=== PATIENT | female | born 1950 | race African-American/Black ===

== ENCOUNTER 2018-11-25 11:25 | Inpatient (IN) | payer MEDICARE, BC ==
[~2018-11-25] VITALS: Ht 152.4 cm; Wt 48.1 kg
[~2018-11-25 11:25] MED LIST: ACET-2178 PO; ATOR10TA PO; DOCU-138 PO; FAMO-134 PO; LIDO700A TP; MILK OF MAGNESIA PO; POLY17PO3 PO; WARF1TAB46 PO
[2018-11-25] MEDS ORDERED: SODIUM CHLORIDE 0.9% 1,000 ML IV ONE (12:20)
[2018-11-25 13:24] LABS: CHLORIDE 100 mEq/L (98-107)
[2018-11-25 13:30] LABS: BASOPHILS % 0.1 % (0.0-2.0); HEMATOCRIT. 44.6 % (36.0-48.0); HEMOGLOBIN. 14.5 g/dL (12.0-16.0); LYMPHOCYTES % 11.3 % (20.0-50.0); MEAN CORPUSCULAR HEMOGLOBIN 30.2 pg (28.0-32.0); MEAN CORPUSCULAR VOLUME 92.7 fL (81.0-99.0); MONOCYTES % 4.7 % (2.0-8.0); NEUTROPHILS % 83.9 % (40.0-76.0); PLATELET 190 x1000/uL (130-400); RED BLOOD CELL COUNT 4.81 mill/uL (4.2-5.4); RED CELL DISTRIBUTION WIDTH 15.1 % (11.6-14.6)
[2018-11-25] MEDS ORDERED: ASPIRIN 81MG TABLET PO ONE (14:15)
[2018-11-25] MEDS ORDERED: NITROGLYCERIN 0.4MG TABLET SL SL PRN (14:15)
[2018-11-25] MEDS ORDERED: ENOXAPARIN 100MG/ML SYR SUBCUT ONE (14:15)
[2018-11-25 14:20] LABS: CLARITY URINE CLEAR (CLEAR); COLOR URINE DARK YELLOW (YELLOW); KETONES URINE NEGATIVE (NEGATIVE); LEUKOCYTE ESTERASE URINE NEGATIVE (NEGATIVE); NITRITE URINE NEGATIVE (NEGATIVE); OCCULT BLOOD URINE 2+ (NEGATIVE); PH URINE 5.5 (4.5-8.0); PROTEIN URINE 2+ (NEGATIVE); SPECIFIC GRAVITY URINE 1.024 (1.005-1.030)
[2018-11-25] MEDS ORDERED: INSULIN REGULAR (HUMULIN R) 300UNITS/3ML SUBCUT ONE (15:15)
[2018-11-25] MEDS ORDERED: DEXTROSE 50% WATER 50ML SYRINGE IV PRN (23:30)
[2018-11-26] VITALS (13 sets, daily range): BP systolic 102–134; BP diastolic 71–100
[2018-11-26] MEDS ORDERED: SODIUM POLYSTYRENE SULFONATE 15 G/60 ML BOT PO NR (01:00)
[2018-11-26 06:47] LABS: BASOPHILS % 0.2 % (0.0-2.0); HEMOGLOBIN. 13.7 g/dL (12.0-16.0); LYMPHOCYTES % 14.2 % (20.0-50.0); MEAN CORPUSCULAR HEMOGLOBIN 29.6 pg (28.0-32.0); MEAN CORPUSCULAR VOLUME 90.8 fL (81.0-99.0); MEAN PLATELET VOLUME 10.8 fl (7.4-10.4); MONOCYTES % 8.1 % (2.0-8.0); NEUTROPHILS % 77.5 % (40.0-76.0); PLATELET 219 x1000/uL (130-400); RED BLOOD CELL COUNT 4.63 mill/uL (4.2-5.4); RED CELL DISTRIBUTION WIDTH 14.9 % (11.6-14.6)
[2018-11-26 06:56] LABS: CHLORIDE 106 mEq/L (98-107)
[2018-11-26] MEDS: BLOOD SUGAR DIAGNOSTIC STRIP TEST SCH ×4 (08:13→21:00)
[2018-11-26] MEDS: INSULIN LISPRO 100 UNITS/ML SUBCUT SCH ×4 (08:40→21:00)
[2018-11-26] MEDS ORDERED: IPRATROPIUM/ALBUTEROL 0.5-3(2.5)MG/3ML NEB HHN PRN (13:30)
[2018-11-26] MEDS: ENOXAPARIN 30MG/0.3ML SYR SUBCUT SCH (13:38)
[2018-11-26] MEDS ORDERED: VANCOMYCIN 1 G PREMIX 200 ML IV NR (15:30)
[2018-11-26] MEDS ORDERED: CEFTRIAXONE 1 G PREMIX 50 ML IV SCH (15:30)
[2018-11-26] MEDS ORDERED: KEPP500 MT (19:12)
[2018-11-26] MEDS ORDERED: DIVA500T3 MT (19:12)
[2018-11-26 19:58] LABS: D-DIMER 1.72 mg/L FEU (<0.50); INR 1.4
[2018-11-26 20:06] LABS: CREATINE KINASE MB FRACTION 5.1 ng/mL (0.5-3.6)
[2018-11-26 20:09] LABS: T4 FREE 1.21 ng/dL (0.76-1.46)
[2018-11-27] VITALS (9 sets, daily range): BP systolic 90–117; BP diastolic 58–90
[2018-11-27 00:36] LABS: CREATINE KINASE MB FRACTION 5.3 ng/mL (0.5-3.6)
[2018-11-27] MEDS: VANCOMYCIN 500 MG PREMIX 100 ML IV SCH ×2 (06:31→17:21)
[2018-11-27] MEDS: BLOOD SUGAR DIAGNOSTIC STRIP TEST SCH ×4 (07:42→21:01)
[2018-11-27] MEDS: INSULIN LISPRO 100 UNITS/ML SUBCUT SCH ×4 (08:29→21:10)
[2018-11-27 08:54] LABS: CREATINE KINASE MB FRACTION 4.9 ng/mL (0.5-3.6)
[2018-11-27] MEDS: LEVETIRACETAM 500 MG in SODIUM CHLORIDE 0.9% 100 ML IV SCH ×2 (11:47→20:55)
[2018-11-27] MEDS: DIVALPROEX SODIUM 250MG DR TABLET PO SCH ×2 (11:47→20:55)
[2018-11-27] MEDS: ENOXAPARIN 30MG/0.3ML SYR SUBCUT SCH (11:48)
[2018-11-27] MEDS ORDERED: DIATR MEGLU/DIATRIZOATE SOLN 30ML PO SCH (12:00)
[2018-11-27 13:11] LABS: BASOPHILS % 0.4 % (0.0-2.0); HEMATOCRIT. 44.9 % (36.0-48.0); HEMOGLOBIN. 14.6 g/dL (12.0-16.0); LYMPHOCYTES % 7.6 % (20.0-50.0); MEAN CORPUSCULAR HEMOGLOBIN 29.7 pg (28.0-32.0); MEAN PLATELET VOLUME 11.2 fl (7.4-10.4); MONOCYTES % 5.6 % (2.0-8.0); NEUTROPHILS % 86.4 % (40.0-76.0); PLATELET 209 x1000/uL (130-400); RED BLOOD CELL COUNT 4.93 mill/uL (4.2-5.4)
[2018-11-27 13:32] LABS: CHLORIDE 104 mEq/L (98-107)
[2018-11-27] MEDS ORDERED: CEFTRIAXONE 1 G PREMIX 50 ML IV SCH (14:00)
[2018-11-27] MEDS ORDERED: FURO-152 MT (15:34)
[2018-11-27] MEDS ORDERED: MEGE40TA27 PO (15:34)
[2018-11-27] MEDS ORDERED: CARV6.2548 MT (15:34)
[2018-11-27] MEDS ORDERED: APIX5TAB MT (15:34)
[2018-11-27] MEDS ORDERED: LISI2.5T47 MT (15:34)
[2018-11-27] MEDS ORDERED: THIA50TA11 MT (15:34)
[2018-11-27] MEDS ORDERED: ASPI-1393 MT (15:34)
[2018-11-27] MEDS: SODIUM CHLORIDE 0.9% 1,000 ML IV SCH (17:21)
[2018-11-28] VITALS (12 sets, daily range): BP systolic 89–129; BP diastolic 54–82
[2018-11-28] MEDS: SODIUM CHLORIDE 0.9% 1,000 ML IV SCH ×2 (05:49→21:33)
[2018-11-28] MEDS: VANCOMYCIN 500 MG PREMIX 100 ML IV SCH ×2 (05:49→18:06)
[2018-11-28] MEDS: BLOOD SUGAR DIAGNOSTIC STRIP TEST SCH ×4 (07:30→21:42)
[2018-11-28] MEDS: INSULIN LISPRO 100 UNITS/ML SUBCUT SCH ×4 (08:00→21:00)
[2018-11-28] MEDS: DIVALPROEX SODIUM 250MG DR TABLET PO SCH ×2 (08:30→21:37)
[2018-11-28] MEDS: LEVETIRACETAM 500 MG in SODIUM CHLORIDE 0.9% 100 ML IV SCH (09:13)
[2018-11-28] MEDS ORDERED: LEVOFLOXACIN 500MG PREMIX 100 ML IV SCH (12:00)
[2018-11-28] MEDS: APIXABAN 5 MG TABLET PO SCH ×2 (12:09→18:06)
[2018-11-28 12:57] LABS: BASOPHILS % 0.2 % (0.0-2.0); EOSINOPHILS % 0.5 % (0.0-5.0); HEMATOCRIT. 44.4 % (36.0-48.0); HEMOGLOBIN. 14.7 g/dL (12.0-16.0); LYMPHOCYTES % 8.1 % (20.0-50.0); MEAN CORPUSCULAR HEMOGLOBIN 30.1 pg (28.0-32.0); MEAN CORPUSCULAR VOLUME 91.2 fL (81.0-99.0); MEAN PLATELET VOLUME 9.8 fl (7.4-10.4); MONOCYTES % 7.2 % (2.0-8.0); PLATELET 200 x1000/uL (130-400); RED BLOOD CELL COUNT 4.87 mill/uL (4.2-5.4)
[2018-11-28 13:11] LABS: CHLORIDE 100 mEq/L (98-107)
[2018-11-29] VITALS (12 sets, daily range): BP systolic 2–121; BP diastolic 25–86
[2018-11-29] MEDS: VANCOMYCIN 500 MG PREMIX 100 ML IV SCH ×2 (05:17→17:23)
[2018-11-29] MEDS: INSULIN LISPRO 100 UNITS/ML SUBCUT SCH ×4 (08:00→20:53)
[2018-11-29] MEDS: BLOOD SUGAR DIAGNOSTIC STRIP TEST SCH ×4 (08:10→20:46)
[2018-11-29] MEDS: MEGESTROL ACETATE 400 MG/10 ML UDC PO SCH (09:19)
[2018-11-29] MEDS: APIXABAN 5 MG TABLET PO SCH ×2 (09:19→17:23)
[2018-11-29] MEDS: DIVALPROEX SODIUM 250MG DR TABLET PO SCH ×2 (09:19→20:46)
[2018-11-29] MEDS: SODIUM CHLORIDE 0.9% 1,000 ML IV SCH ×2 (09:20→20:47)
[2018-11-29] MEDS: LEVOFLOXACIN 250MG PREMIX 50 ML IV SCH (11:29)
[2018-11-30] VITALS (12 sets, daily range): BP systolic 96–124; BP diastolic 61–86
[2018-11-30] MEDS: VANCOMYCIN 500 MG PREMIX 100 ML IV SCH ×2 (05:08→17:18)
[2018-11-30] MEDS: INSULIN LISPRO 100 UNITS/ML SUBCUT SCH ×4 (07:50→20:26)
[2018-11-30] MEDS: BLOOD SUGAR DIAGNOSTIC STRIP TEST SCH ×4 (07:50→20:28)
[2018-11-30] MEDS: MEGESTROL ACETATE 400 MG/10 ML UDC PO SCH (08:09)
[2018-11-30] MEDS: APIXABAN 5 MG TABLET PO SCH ×2 (08:09→16:28)
[2018-11-30] MEDS: DIVALPROEX SODIUM 250MG DR TABLET PO SCH ×2 (08:09→20:27)
[2018-11-30] MEDS: SODIUM CHLORIDE 0.9% 1,000 ML IV SCH (10:41)
[2018-11-30] MEDS: LEVOFLOXACIN 250MG PREMIX 50 ML IV SCH (11:06)
[2018-12-01] VITALS (9 sets, daily range): BP systolic 100–126; BP diastolic 67–96
[2018-12-01] MEDS: SODIUM CHLORIDE 0.9% 1,000 ML IV SCH (00:30)
[2018-12-01] MEDS: VANCOMYCIN 500 MG PREMIX 100 ML IV SCH (06:15)
[2018-12-01] MEDS: INSULIN LISPRO 100 UNITS/ML SUBCUT SCH ×2 (07:55→12:22)
[2018-12-01] MEDS: BLOOD SUGAR DIAGNOSTIC STRIP TEST SCH ×2 (07:55→11:52)
[2018-12-01] MEDS: APIXABAN 5 MG TABLET PO SCH (08:56)
[2018-12-01] MEDS: DIVALPROEX SODIUM 250MG DR TABLET PO SCH (08:56)
[2018-12-01] MEDS: MEGESTROL ACETATE 400 MG/10 ML UDC PO SCH (08:57)
[2018-12-01] MEDS: LEVOFLOXACIN 250MG PREMIX 50 ML IV SCH (12:15)
[2018-12-02] MEDS ORDERED: CARVEDILOL 3.125 MG TABLET PO SCH (09:00)
== END 2018-12-01 16:20 | disposition home health service (06) | DRG 871 ==
LOC: ER 11:25 → 5EST 16:40 → EDBEDREQTM 16:45 → EDBEDREQSVC 16:45 → EDBEDREQ 16:45 → ENRESERV 20:12
PROVIDERS: ADMIT Family Medicine; ATTEND Family Medicine
DX: A41.9 Sepsis, unspecified organism (principal); I50.43 Acute on chronic combined systolic (congestive) and diastolic (congestive) heart failure; I21.4 Non-ST elevation (NSTEMI) myocardial infarction; D68.9 Coagulation defect, unspecified; I42.9 Cardiomyopathy, unspecified; I27.20 Pulmonary hypertension, unspecified; I34.0 Nonrheumatic mitral (valve) insufficiency; R55 Syncope and collapse; R74.0 Nonspecific elevation of levels of transaminase and lactic acid dehydrogenase [LDH]; E78.5 Hyperlipidemia, unspecified; R73.9 Hyperglycemia, unspecified; G40.909 Epilepsy, unspecified, not intractable, without status epilepticus; I11.0 Hypertensive heart disease with heart failure; Z86.73 Personal history of transient ischemic attack (TIA), and cerebral infarction without residual deficits; Z79.899 Other long term (current) drug therapy; Z74.01 Bed confinement status; Z85.89 Personal history of malignant neoplasm of other organs and systems
CPT/HCPCS: 36415; 70551; 71045; 74176; 80048; 80061; 80202; 81003; 82140; 82550; 82553; 82962; 83036; 83605; 83880; 84145; 84439; 84443; 84484; 85379; 92610; 93005; 93306; 96360; 96361; 96372; 97116; 97162; 97530; 99291; J0696; J1650; J1815; J1953; J1956; J3370; J7030; J7050; Q9963